=== PATIENT | male | born 1960 | race Caucasian/White ===

== ENCOUNTER 2016-10-19 13:00 | Inpatient (IN) | payer MEDICARE, MEDICAID ==
[2016-10-19] MEDS ORDERED: MORPHINE SULFATE 10 MG/ML SYRINGE IM STA (13:53)
--- NOTE | 2016-10-19 16:34 | ED ---
Psych HPI - General Chief Complaint: Psychiatric Symptoms Stated Complaint: mental health Time Seen by Provider: 10/19/16 13:38 Source: police, EMS Mode of arrival: EMS - History of Present Illness Initial Comments: Patient presents with suicidal ideation. He slashed his left wrist earlier today. He denies any weakness, belly pain, back pain, chest pain. He has no nausea or vomiting. Patient is withdrawing from morphine as well. He was taking morphine daily for chronic back pain. Patient denies any numbness or tingling. He has no focal weakness. - Related Data Home Medications Medication Instructions Recorded Confirmed Albuterol Inhaler [Ventolin Hfa 1 - 2 puff INHALATION RT-Q6H PRN 10/19/16 Inhaler] Escitalopram [Lexapro] 20 mg PO DAILY 10/19/16 10/19/16 Morphine Sulfate [Linette] 200 mg PO BID 10/19/16 10/19/16 Simvastatin [Zocor] 20 mg PO HS 10/19/16 10/19/16 Tamsulosin HCl [Flomax] 0.4 mg PO HS 10/19/16 10/19/16 clonazePAM [KlonoPIN] 1 mg PO BID 10/19/16 10/19/16 hydrOXYzine PAMOATE [Vistaril] 50 mg PO BID 10/19/16 10/19/16 Allergies Allergy/AdvReac Type Severity Reaction Status Date / Time venom-honey bee Allergy Anaphylaxis Verified 10/19/16 14:40 Review of Systems ROS Statement: Those systems with pertinent positive or pertinent negative responses have been documented in the HPI. ROS Other: All systems not noted in ROS Statement are negative. Past Medical History Additional Past Medical History / Comment(s): back pain History of Any Multi-Drug Resistant Organisms: None Reported Past Surgical History: No Surgical Hx Reported Past Psychological History: Anxiety, Bipolar, Depression Smoking Status: Current every day smoker Past Alcohol Use History: None Reported Past Drug Use History: None Reported General Exam Limitations: no limitations General appearance: alert, in no apparent distress Head exam: Present: atraumatic, normocephalic, normal inspection Eye exam: Present: normal appearance, PERRL, EOMI. Absent: scleral icterus, conjunctival injection, periorbital swelling ENT exam: Present: normal exam, mucous membranes moist Neck exam: Present: normal inspection. Absent: tenderness, meningismus, lymphadenopathy Respiratory exam: Present: normal lung sounds bilaterally. Absent: respiratory distress, wheezes, rales, rhonchi, stridor Cardiovascular Exam: Present: regular rate, normal rhythm, normal heart sounds. Absent: systolic murmur, diastolic murmur, rubs, gallop, clicks GI/Abdominal exam: Present: soft, normal bowel sounds. Absent: distended, tenderness, guarding, rebound, rigid Extremities exam: Present: normal inspection, full ROM, normal capillary refill. Absent: tenderness, pedal edema, joint swelling, calf tenderness Back exam: Present: normal inspection Neurological exam: Present: alert, oriented X3, CN II-XII intact Psychiatric exam: Present: normal affect, normal mood Skin exam: Present: warm, dry, normal color, other (Patient has/moss to the left wrist including 1 laceration extending 1.5 cm). Absent: rash Course Vital Signs 10/19/16 13:10 Temperature 97.6 F Pulse Rate 62 Respiratory 18 Rate Blood Pressure 122/78 O2 Sat by Pulse 100 Oximetry Procedures - Laceration Laceration #1 Consent Obtained: verbal consent Time Out Performed: Yes Indication: laceration Site: upper extremity Description: linear Depth: simple, single layer Anesthetic Used: lidocaine 1% Anesthesia Technique: local infiltration Pre-repair: wound explored, irrigated extensively Type of Sutures: nylon Size of Sutures: 4-0 Technique: simple, interrupted Patient Tolerated Procedure: well, no complications Medical Decision Making - Medical Decision Making Patient presents with suicidal ideation. I repaired his laceration. I consult at psychiatry. Patient will be admitted to psychiatry. I gave the patient anticipatory guidance regarding care of his wound and suture removal at an appropriate time. - Lab Data Lab Results 10/19/16 Range/Units 15:54 Urine Opiates Screen Detected H (NotDetected) Ur Oxycodone Screen Not Detected (NotDetected) Urine Methadone Screen Not Detected (NotDetected) Ur Propoxyphene Screen Not Detected (NotDetected) Ur Barbiturates Screen Not Detected (NotDetected) U Tricyclic Antidepress Not Detected (NotDetected) Ur Phencyclidine Scrn Not Detected (NotDetected) Ur Amphetamines Screen Not Detected (NotDetected) U Methamphetamines Scrn Not Detected (NotDetected) U Benzodiazepines Scrn Not Detected (NotDetected) Urine Cocaine Screen Not Detected (NotDetected) U Marijuana (THC) Screen Not Detected (NotDetected) Disposition Clinical Impression: Depression Disposition: ADMITTED IP TO THIS HOSP Condition: Fair Time of Disposition: 16:34
[2016-10-19] MEDS ORDERED: MAGNESIUM HYDROXIDE 2,400 MG/10 ML CUP PO PRN (17:42)
[2016-10-19] MEDS ORDERED: ACETAMINOPHEN TAB 325 MG TAB PO PRN (17:42)
[2016-10-19] MEDS ORDERED: MAG HYDROX/AL HYDROX/SIMETH 30 ML CUP PO PRN (17:42)
[2016-10-19] MEDS ORDERED: cloNIDine HCL 0.1 MG TAB PO PRN (17:43)
[2016-10-19] MEDS ORDERED: LORazepam 2 MG/ML SYRINGE IM PRN (17:44)
[2016-10-19] MEDS ORDERED: LOPERAMIDE 2 MG CAP PO PRN (17:45)
[2016-10-19] MEDS ORDERED: ONDANSETRON 4 MG TAB PO PRN (17:45)
[2016-10-19] MEDS ORDERED: ALBUTEROL INHALER 60 PUFF/8 GM INHALER INHALATION PRN (17:47)
[2016-10-19 18:50] VITALS: BMI 15.7
[2016-10-19] MEDS: hydrOXYzine PAMOATE 25 MG CAP PO SCH (20:40)
[2016-10-19] MEDS: IBUPROFEN 800 MG TAB PO PRN (20:45)
[2016-10-19] MEDS: LORazepam 1 MG TAB PO PRN (20:46)
[2016-10-19 20:47] VITALS: RESP 16
[2016-10-19] MEDS ORDERED: ATORVASTATIN 10 MG TAB PO SCH (21:00)
[2016-10-19] MEDS ORDERED: TAMSULOSIN 0.4 MG CAP.ER.24H PO SCH (21:00)
[2016-10-19] MEDS ORDERED: cloNIDine HCL 0.1 MG TAB PO SCH (21:00)
[2016-10-19] MEDS ORDERED: ZIPRASIDONE 20 MG VIAL IM PRN (23:14)
[2016-10-20] MEDS: LORazepam 1 MG TAB PO PRN ×2 (06:39→15:38)
[2016-10-20 07:04] VITALS: BP 121/68; PULSE 54; TEMP 98
[2016-10-20] MEDS ORDERED: ESCITALOPRAM 20 MG TAB PO SCH (09:00)
[2016-10-20] MEDS ORDERED: NICOTINE 7MG/24HR PATCH TRANSDERM SCH (09:00)
[2016-10-20] MEDS: hydrOXYzine PAMOATE 25 MG CAP PO SCH (09:18)
[2016-10-20] MEDS: IBUPROFEN 800 MG TAB PO PRN (09:21)
[2016-10-20 09:57] LABS: Basophils % (A) 0 %; CH 30.5; CHCM 32.8; Eosinophils # (A) 0.1 k/uL (0-0.7); Eosinophils % (A) 1 %; HCT 44.9 % (39.0-53.0); HDW 2.32; HGB 14.6 gm/dL (13.0-17.5); Luc # (Auto) 0.04; Luc % (Auto) 0; Lymphocytes % (A) 9 %; MCH 30.3 pg (25.0-35.0); MCHC 32.5 g/dL (31.0-37.0); MCV 93.3 fL (80.0-100.0); Mean Platelet Volume 7.4; Monocytes # (A) 0.3 k/uL (0-1.0); Monocytes % (A) 3 %; Neutrophils # (A) 9.4 k/uL (1.3-7.7); Neutrophils % (A) 87 %; RBC 4.81 m/uL (4.30-5.90); RDW 12.3 % (11.5-15.5); WBC 10.8 k/uL (3.8-10.6); WBC (Perox) 10.85
[2016-10-20 10:27] LABS: ALT 42 U/L (21-72); AST 34 U/L (17-59); Alkaline Phosphatase 69 U/L (38-126); Anion Gap 17 mmol/L; Blood Urea Nitrogen 24 mg/dL (9-20); Calcium 10.4 mg/dL (8.4-10.2); Carbon Dioxide 19 mmol/L (22-30); Chloride 106 mmol/L (98-107); Glucose 243 mg/dL (74-99); Non-African American GFR(MDRD) >60 (>60 ml/min/1.73 sqM); Potassium 4.4 mmol/L (3.5-5.1); Sodium 142 mmol/L (137-145); Total Bilirubin 1.1 mg/dL (0.2-1.3); Total Protein 8.2 g/dL (6.3-8.2)
--- NOTE | 2016-10-20 14:08 | P.HP ---
Psychiatric H&P - . H&P Date: 10/20/16 History & Physical: IDENTIFYING DATA: Mr. Lopez is a 56-year-old male who presented to the ED with suicidal ideation and a self-inflicted laceration to his left wrist. He was minimally cooperative with the interview and his history was inconsistent during interview and with information obtained by other staff. HISTORY OF PRESENT ILLNESS: Local authorities brought him to the ED and a global chief experience officer completed a Petition/Application for Hospitalization. On the Petition and the officer wrote "subject called crisis line stating he was depressed and cutting himself as he was on the following. Subject did have a superficial laceration to his left wrist. He was very pale, weak, dizzy. Wants to kill himself, severe back pain. Ranout of Klonopin, anxiety." He stated he became suicidal because he was unable to obtain another prescription for morphine sulfate 250 mg by mouth twice a day. He stated that a neurologist in [place], Saurav Brooks, had been prescribing this medication for the last 10 years for chronic back pain due to degenerative joint disease. He received a partial prescription on September 28. When he called the physician office to obtain a refill, the physician's office told him that the physician office has closed. They provided him with the names of other "pain specialist" in the [place] area. Mr. Lopez stated that he called the doctor's offices but none of the physicians would prescribe him the morphine sulfate without a medical evaluation. He attempted to self detox by decreasing the frequency of his dosing. He described increasing opiate withdrawal symptoms and complained of worsening back pain. When he cut his wrist he stated that he was frustrated that he would not be able to tolerate the opiate withdrawal symptoms. While he was in the emergency department he refused to sign a voluntary admission. He complained of opiate withdrawal symptoms and worsening pain. He denies that he has an opiate use problem and is not interested in a referral to a methadone treatment program. PAST PSYCHIATRIC HISTORY: He denied prior psychiatric hospitalizations. He alleged that he "may have" met with a mental health professional in the past but would not provide additional information. PAST MEDICAL HISTORY: He alleged that he injured his back several years ago when he was picking up one of his children. He stated that non-opiate treatments were ineffective and he has been prescribed opiate pain medications for many years. He initially received the medications from a [place] physician but transferred to Dr. Vivas when the [place] physicians lost his license to practice medicine. He believes that Dr. Vivas is no longer in practice because he also may have lost his license to practice medicine. According to the licensing information for the [facility] Dr. Modesto Vivas summarily lost his license to practice medicine on 10/04/16. ALLERGIES: He has a self-reported ALLERGY to codeine, hydrocodone, oxycodone and tramadol SUBSTANCE USE HISTORY: He denied a history of abuse of heroin, cocaine, methamphetamine or opioid pain medicines and alcohol. He denied smoking marijuana but boasted that he has a license to grow and self marijuana. FAMILY PSYCHIATRIC/SUBSTANCE USE HISTORY: He is unaware of family history of mental illness. LEGAL HISTORY: He denied current legal problems. He is not on probation, parole or has pending legal charges. 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 SOCIAL HISTORY: His born and raised in [place] to an intact family. He graduated from high school and alleged that he obtained an Associates degree in [employer] arts after he left [place] [facility]. His parents, 2 brothers and 3 sisters are . He had no contact with his brothers or sisters since he was 7 years old. He was 7 years. His is . He has 3 daughters ages 30, 26 and 22. The oldest is out of wedlock the youngest were from his marriage. He is currently unemployed and receives social security disability. He last worked in 2003. He lives alone in an apartment in [place] [facility]. MENTAL STATUS EXAM: He presented as a thin pale appearing male who was minimally cooperative with the interview he was irritable and guarded. He made eye contact. He had no distinguishing features or prominent physical abnormalities. He had an irritable facial expression. He is alert and oriented to person, place and time. He has slight psychomotor retardation but no abnormal involuntary movements. His speech was not spontaneous and he had no articulation difficulties. He was irritable and angry. He denied suicidal ideation or wishes. He denied homicidal ideations. He described feelings depression related to his inability to obtain prescriptions for morphine sulfate but he denied feelings of worthlessness, helplessness or hopelessness. He denied obsessions. He ruminated on his pain and need for opiate medications. He didn't express ideas reference or paranoid ideation. His thinking was concrete but his associations were coherent and goal directed. He denied did not express clang associations, perseveration, neologisms or blocking. He denied hallucinations and did not appear to be responding to internal stimuli. Global impression of intellect is average. He has no awareness or understanding of his inappropriate and excessive use of opiate pain medication. STRENGTHS: Stable housing, stable income, treatment seeking WEAKNESSES: Chronic opiate use. IMPRESSION: He is a 56-year-old male who presented to unit involuntarily with complaints of opiate withdrawal and pain. He has been prescribed extremely high doses of morphine sulfate for the treatment of noncancerous pain. The physician providing the medication has recently lost his license to practice in [place]. Mr. Lopez is unable to find another physician willing to prescribe him the morphine sulfate. He denies that he has some opiate use problem and is not interested in referral to a substance use treatment program. He does not meet judicial criteria for voluntary hospitalization and he is unwilling to sign a voluntary admission. PRINCIPLE DIAGNOSIS: Opiate withdrawal, opiate use disorder, history of chronic back pain. RECOMMENDATION: He declined our offer for voluntary admission. He was preoccupied with obtaining narcotic pain medications and attempted several times to negotiate different medications. I explained that we will not prescribe him opiate medications without an evaluation and recommendation by our executive consultant sql server dba developer. We completed a negative certificate and discharged him to follow-up with one of the physicians recommended by his former pain specialist. Allergies Allergy/AdvReac Type Severity Reaction Status Date / Time venom-honey bee Allergy Anaphylaxis Verified 10/19/16 14:40 codeine AdvReac Anaphylaxis Verified 10/19/16 18:51 hydrocodone [From Rumely] AdvReac Anaphylaxis Verified 10/19/16 20:16 oxycodone [From Percocet] AdvReac Anaphylaxis Verified 10/19/16 20:16 tramadol AdvReac Anaphylaxis Verified 10/19/16 20:16 Vital Signs Temp 98.0 F 10/20/16 07:03 Pulse 54 L 10/20/16 07:03 Resp 16 10/20/16 07:03 BP 121/68 10/20/16 07:03 Pulse Ox 100 10/19/16 13:10 Intake & Output 10/19/16 10/20/16 10/20/16 18:59 06:59 18:59 Weight 49.898 kg Laboratory Last Values Urine Opiates Screen Detected (NotDetected) H 10/19/16 15:54 Ur Oxycodone Screen Not Detected (NotDetected) 10/19/16 15:54 Urine Methadone Screen Not Detected (NotDetected) 10/19/16 15:54 Ur Propoxyphene Screen Not Detected (NotDetected) 10/19/16 15:54 Ur Barbiturates Screen Not Detected (NotDetected) 10/19/16 15:54 U Tricyclic Antidepress Not Detected (NotDetected) 10/19/16 15:54 Ur Phencyclidine Scrn Not Detected (NotDetected) 10/19/16 15:54 Ur Amphetamines Screen Not Detected (NotDetected) 10/19/16 15:54 U Methamphetamines Scrn Not Detected (NotDetected) 10/19/16 15:54 U Benzodiazepines Scrn Not Detected (NotDetected) 10/19/16 15:54 Urine Cocaine Screen Not Detected (NotDetected) 10/19/16 15:54 U Marijuana (THC) Screen Not Detected (NotDetected) 10/19/16 15:54 10/20/16 08:48 10/20/16 13:41
--- NOTE | 2016-10-20 14:18 | P.DS ---
Providers Date of admission: 10/19/16 17:41 Attending physician: Patrick Parra MD Consults: 10/19/16 17:42 Consult Physician Routine Consulting Provider: Patrick Nguyen Consult Reason/Comments: Medical Management-Recommendation for pain/opiate withdrawal Do you want consulting provider notified?: Yes Primary care physician: Modesto Vivas - Discharge Diagnosis(es) (1) Opioid withdrawal Current Visit: Yes Status: Acute Priority: High (2) Opioid use disorder, severe, dependence Current Visit: Yes Status: Chronic Priority: High (3) Deliberate self-cutting Current Visit: Yes Status: Acute Priority: Medium Hospital Course: Mr. Lopez is a 56-year-old male who presented to the ED with suicidal ideation and a self-inflicted laceration to his left wrist. He was minimally cooperative with the interview and his history was inconsistent during interview and with information obtained by other staff. HISTORY OF PRESENT ILLNESS: Local authorities brought him to the ED and a marketing and communications officer completed a Petition/Application for Hospitalization. On the Petition and the officer wrote "subject called crisis line stating he was depressed and cutting himself as he was on the following. Subject did have a superficial laceration to his left wrist. He was very pale, weak, dizzy. Wants to kill himself, severe back pain. Ranout of Klonopin, anxiety." He stated he became suicidal because he was unable to obtain another prescription for morphine sulfate 250 mg by mouth twice a day. He stated that a neurologist in [place], Saurav Brooks, had been prescribing this medication for the last 10 years for chronic back pain due to degenerative joint disease. He received a partial prescription on September 28. When he called the physician office to obtain a refill, the physician's office told him that the physician office has closed. They provided him with the names of other "pain specialist" in the [place] area. Mr. Lopez stated that he called the doctor's offices but none of the physicians would prescribe him the morphine sulfate without a medical evaluation. He attempted to self detox by decreasing the frequency of his dosing. He described increasing opiate withdrawal symptoms and complained of worsening back pain. When he cut his wrist he stated that he was frustrated that he would not be able to tolerate the opiate withdrawal symptoms. While he was in the emergency department he refused to sign a voluntary admission. He complained of opiate withdrawal symptoms and worsening pain. He denies that he has an opiate use problem and is not interested in a referral to a methadone treatment program. PAST PSYCHIATRIC HISTORY: He denied prior psychiatric hospitalizations. He alleged that he "may have" met with a mental health professional in the past but would not provide additional information. PAST MEDICAL HISTORY: He alleged that he injured his back several years ago when he was picking up one of his children. He stated that non-opiate treatments were ineffective and he has been prescribed opiate pain medications for many years. He initially received the medications from a [place] physician but transferred to Dr. Vivas when the [place] physicians lost his license to practice medicine. He believes that Dr. Vivas is no longer in practice because he also may have lost his license to practice medicine. According to the licensing information for the [facility] Dr. Modesto Vivas summarily lost his license to practice medicine on 10/04/16. HOSPITAL COURSE: We admitted Mr. Lopez to the psychiatric unit involuntarily. We completed a comprehensive psychiatric, social and nursing assessment. Ourr impression that he was experiencing opiate withdrawal and had been inappropriately prescribed excessively high doses of narcotic pain medications. The physician who had been prescribing the medication has lost his license to practice in a [facility]. Mr. Lopez is distressed because he is unable to find a physician who is willing to prescribe the opiate pain medication. We treated his opiate withdrawal symptoms symptomatically with clonidine, lorazepam, Zofran and Lomotil. He complained about his inability to find physician willing to prescribe him the opiate pain medications. He does not believe he has a substance use problem declined a referral to a substance abuse treatment program. He denied suicidal ideation, intent or plan. He did not meet judicial criteria for involuntary hospitalization and refused our offer for a voluntary hospitalization for continued detoxification. We therefore discharged him with referral to [facility] and contact the physicians recommended by his former pain specialist. Patient Condition at Discharge: Fair Plan - Discharge Summary New Discharge Prescriptions: Albuterol Inhaler [Ventolin Hfa Inhaler] 1 - 2 puff INHALATION RT-Q6H PRN 30 Days PRN Reason: Shortness Of Breath Escitalopram [Lexapro] 20 mg PO DAILY 30 Days Ibuprofen [Motrin] 800 mg PO BID 30 Days Loperamide [Imodium] 2 mg PO QID PRN 30 Days PRN Reason: Diarrhea Nicotine 7Mg/24Hr Patch [Habitrol] 1 patch TRANSDERM DAILY 14 Days Ondansetron [Zofran] 4 mg PO Q8HR PRN 7 Days PRN Reason: Nausea And Vomiting Simvastatin [Zocor] 20 mg PO HS 30 Days Tamsulosin HCl [Flomax] 0.4 mg PO HS 30 Days hydrOXYzine PAMOATE [Vistaril] 50 mg PO BID 30 Days Discharge Medication List Albuterol Inhaler [Ventolin Hfa Inhaler] 1 - 2 puff INHALATION RT-Q6H PRN 30 Days 10/20/16 [Rx] Escitalopram [Lexapro] 20 mg PO DAILY 30 Days 10/20/16 [Rx] Ibuprofen [Motrin] 800 mg PO BID 30 Days 10/20/16 [Rx] Loperamide [Imodium] 2 mg PO QID PRN 30 Days 10/20/16 [Rx] Nicotine 7Mg/24Hr Patch [Habitrol] 1 patch TRANSDERM DAILY 14 Days 10/20/16 [Rx] Ondansetron [Zofran] 4 mg PO Q8HR PRN 7 Days 10/20/16 [Rx] Simvastatin [Zocor] 20 mg PO HS 30 Days 10/20/16 [Rx] Tamsulosin HCl [Flomax] 0.4 mg PO HS 30 Days 10/20/16 [Rx] hydrOXYzine PAMOATE [Vistaril] 50 mg PO BID 30 Days 10/20/16 [Rx] Follow up Appointment(s)/Referral(s): [facility] [Outside] - 10/23/16 7:00 pm (Dr Hand) Modesto Vivas DO [Primary Care Provider] - 1-2 days
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
== END 2016-10-20 16:36 | disposition home or self-care (01) | DRG 897 ==
LOC: EC 13:00 → 3MHU 17:41
PROVIDERS: ADMIT Psychiatry & Neurology Psychiatry; ATTEND Psychiatry & Neurology Psychiatry
DX: F11.23 Opioid dependence with withdrawal (principal); R45.851 Suicidal ideations; G89.29 Other chronic pain; M54.9 Dorsalgia, unspecified; S61.512A Laceration without foreign body of left wrist, initial encounter; X78.9XXA Intentional self-harm by unspecified sharp object, initial encounter; F17.200 Nicotine dependence, unspecified, uncomplicated; F32.9 Major depressive disorder, single episode, unspecified; F41.9 Anxiety disorder, unspecified; M47.9 Spondylosis, unspecified; Z79.899 Other long term (current) drug therapy
CPT/HCPCS: 12001; 80053; 80306; 82075; 84443; 85025; 94640; 96372; 99285

== ENCOUNTER → 2018-08-13 | Outpatient (CLI) | payer MEDICARE ==
[2018-08-13 11:02] LABS: Basophils # (A) 0.1 k/uL (0-0.2); Basophils % (A) 1 %; Eosinophils # (A) 0.2 k/uL (0-0.7); Eosinophils % (A) 4 %; HGB 13.2 gm/dL (13.0-17.5); Lymphocytes # (A) 1.8 k/uL (1.0-4.8); Lymphocytes % (A) 36 %; MCH 30.6 pg (25.0-35.0); MCHC 33.8 g/dL (31.0-37.0); MCV 90.8 fL (80.0-100.0); Mean Platelet Volume 8.1; Monocytes # (A) 0.4 k/uL (0-1.0); Monocytes % (A) 7 %; Neutrophils # (A) 2.6 k/uL (1.3-7.7); Neutrophils % (A) 50 %; Platelet Count 183 k/uL (150-450); RDW 13.2 % (11.5-15.5); WBC 5.1 k/uL (3.8-10.6)
[2018-08-13 15:58] LABS: Albumin 4.3 g/dL (3.80-4.90); Albumin/Globulin Ratio 2.53 (1.20-2.10); Anion Gap 6.1 mmol/L (4.00-12.00); Calcium 9.1 mg/dL (8.7-10.3); Carbon Dioxide 24.9 mmol/L (21.6-31.8); Globulin 1.7 g/dL (2.1-3.7); LDL Cholesterol,Calculated 107.2 mg/dL (0.0-131.0); Potassium 4.1 mmol/L (3.5-5.5); Total Bilirubin 0.4 mg/dL (0.2-1.2); VLDL Calculation 22.8 mg/dL (5.00-40.00)
[2018-08-13 16:06] LABS: T4, Free (Free Thyroxine) 1.1 ng/dL (0.80-1.80)
[2018-08-13 17:18] LABS: HIV 1 AB Non-Reactive (Non-Reactive); HIV AB P24 Non-Reactive (Non-Reactive); HIV P24 AG Non-Reactive (Non-Reactive)
[2018-08-14 13:57] LABS: Hepatits C Virus RNA Not detected (Not detected); Hepatits C Virus RNA, Quant <12 IU/mL (<12); LOG HCV IU/mL <1.08 (<1.08)
== END ==
LOC: LABWHC1 10:05
PROVIDERS: ATTEND Family Medicine
DX: E78.5 Hyperlipidemia, unspecified (principal); B18.2 Chronic viral hepatitis C; Z20.9 Contact with and (suspected) exposure to unspecified communicable disease; Z12.5 Encounter for screening for malignant neoplasm of prostate
CPT/HCPCS: 36415; 80053; 80061; 82105; 84153; 84439; 84443; 85025; 87390; 87522

== ENCOUNTER 2019-11-19 11:29 | Inpatient (IN) | payer MEDICARE, OTHER ==
[2019-11-19] MEDS ORDERED: NICOTINE 21MG/24HR PATCH TRANSDERM SCH (13:00)
[2019-11-19] MEDS ORDERED: HYDROcodone/APAP 7.5-325MG 1 EACH TAB PO PRN (13:03)
[2019-11-19] MEDS ORDERED: ACETAMINOPHEN TAB 500 MG TAB PO PRN (13:04)
[2019-11-19] MEDS: MORPHINE SULFATE 2 MG/ML SYRINGE IVP PRN ×3 (13:40→23:14)
[2019-11-19 13:54] LABS: Basophils # (A) 0.1 k/uL (0-0.2); Basophils % (A) 1 %; Eosinophils % (A) 1 %; HCT 42.5 % (39.0-53.0); HGB 14.2 gm/dL (13.0-17.5); Lymphocytes # (A) 1.5 k/uL (1.0-4.8); Lymphocytes % (A) 18 %; MCH 31.9 pg (25.0-35.0); MCHC 33.5 g/dL (31.0-37.0); MCV 95.3 fL (80.0-100.0); Monocytes # (A) 0.5 k/uL (0-1.0); Monocytes % (A) 6 %; Neutrophils # (A) 5.9 k/uL (1.3-7.7); Neutrophils % (A) 73 %; Platelet Count 204 k/uL (150-450); RBC 4.46 m/uL (4.30-5.90); RDW 13.3 % (11.5-15.5); WBC 8.1 k/uL (3.8-10.6)
[2019-11-19 14:05] LABS: ALT 18 U/L (4-49); AST 25 U/L (17-59); African American GFR (CKD) >90 (>60 ml/min/1.73 sqM); Albumin 4.5 g/dL (3.5-5.0); Alkaline Phosphatase 59 U/L (38-126); Anion Gap 6 mmol/L; Blood Urea Nitrogen 12 mg/dL (9-20); Calcium 9.8 mg/dL (8.4-10.2); Carbon Dioxide 28 mmol/L (22-30); Chloride 103 mmol/L (98-107); Glucose 98 mg/dL (74-99); Non-African American GFR(CKD) 87 (>60 ml/min/1.73 sqM); Potassium 4.1 mmol/L (3.5-5.1); Sodium 137 mmol/L (137-145); Total Bilirubin 0.7 mg/dL (0.2-1.3); Total Protein 7.2 g/dL (6.3-8.2)
[2019-11-19] MEDS ORDERED: PNEUMOCOCCAL VACC-PNEUMOVAX 23 25 MCG/0.5 ML VIAL IM ONE (14:49)
--- NOTE | 2019-11-19 15:11 | CT ---
EXAMINATION TYPE: CT lumbar spine wo con DATE OF EXAM: 11/19/2019 2:57 PM COMPARISON: None. HISTORY: Chronic back pain. CT DLP: 368.7 mGycm Automated exposure control for dose reduction was used. Unenhanced CT of the lumbar spine was performed. Bone and soft tissue window settings are submitted as well as coronal and sagittal reconstructions. There are 5 lumbar-type vertebra. Lumbar spine shows satisfactory alignment without evidence of acute fracture or dislocation. Vertebral body heights and disc space heights are felt within normal limits . No large posterior disc herniations on sagittal images. Axial images show T12-L1, L1-L2, and L2-L3 levels all felt to be within normal limits. Axial images at L3-L4 levels with mild broad disc bulge minimally effacing the anterior thecal sac, b ilateral neural foramina are patent. Axial images at L4-L5 level and [id number] facet degenerative changes bilaterally with mild bro ad-based posterior disc protrusion mildly effacing the anterior thecal sac and causing mild/moderate bilateral neural foraminal narrowing. Axial images at L5-S1 level shows central disc protrusion with spinal canal is preserved. Bilateral n eural foramina are patent. Mild/moderate calcified plaque of the aorta extends into the iliac branch vessels. Patient has very l ittle intra-abdominal fat. Debris-filled stomach suggests recent meal ingestion. IMPRESSION: Mild degenerative changes mid to lower lumbar spine as detailed above.
[2019-11-19] MEDS: SENNOSIDES-DOCUSATE SODIUM 1 EACH TAB PO SCH ×2 (15:22→20:25)
[2019-11-19] MEDS: SODIUM CHLORIDE 0.9% 1,000 ML IV SCH (15:23)
[2019-11-19] MEDS: PANTOPRAZOLE 40 MG/10 ML VIAL IVP SCH (15:23)
[2019-11-19] MEDS: NICOTINE 7MG/24HR PATCH TRANSDERM SCH (15:23)
[2019-11-19] MEDS ORDERED: INSULIN ASPART (NovoLOG) 100 UNIT/ML VIAL SQ SCH (17:30)
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
[2019-11-19] MEDS: clonazePAM 0.5 MG TAB PO SCH (20:25)
[2019-11-19] MEDS: GABAPENTIN 100 MG CAP PO SCH ×2 (20:25→23:14)
[2019-11-19] MEDS: TAMSULOSIN 0.4 MG CAP.ER.24H PO SCH (20:25)
[2019-11-20 00:40] LABS: Folate, Serum 16.2 ng/mL
[2019-11-20] MEDS: SODIUM CHLORIDE 0.9% 1,000 ML IV SCH ×2 (02:06→15:52)
[2019-11-20 02:31] LABS: Hemoglobin A1C 5.6 % (4.0-6.0)
[2019-11-20] MEDS: MORPHINE SULFATE 2 MG/ML SYRINGE IVP PRN (03:52)
[2019-11-20] MEDS: NICOTINE 7MG/24HR PATCH TRANSDERM SCH (07:49)
[2019-11-20] MEDS: GABAPENTIN 100 MG CAP PO SCH (07:49)
[2019-11-20] MEDS: SENNOSIDES-DOCUSATE SODIUM 1 EACH TAB PO SCH ×2 (07:49→20:06)
[2019-11-20] MEDS: PANTOPRAZOLE 40 MG/10 ML VIAL IVP SCH (07:50)
[2019-11-20] MEDS: clonazePAM 0.5 MG TAB PO SCH ×2 (07:50→20:06)
[2019-11-20] MEDS: MORPHINE SULFATE 4 MG/ML SYRINGE IVP PRN ×4 (07:50→20:06)
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
[2019-11-20] MEDS: methylPREDNISolone SOD SUCCI 40 MG/ML 1 ML VIAL IV SCH ×2 (09:24→15:53)
[2019-11-20 09:34] LABS: Basophils # (A) 0.1 k/uL (0-0.2); Basophils % (A) 1 %; Eosinophils # (A) 0.1 k/uL (0-0.7); Eosinophils % (A) 1 %; HCT 44.5 % (39.0-53.0); HGB 14.2 gm/dL (13.0-17.5); Lymphocytes # (A) 1.4 k/uL (1.0-4.8); Lymphocytes % (A) 17 %; MCH 31.2 pg (25.0-35.0); MCV 97.3 fL (80.0-100.0); Monocytes # (A) 0.4 k/uL (0-1.0); Monocytes % (A) 5 %; Neutrophils # (A) 6.2 k/uL (1.3-7.7); Neutrophils % (A) 74 %; Platelet Count 209 k/uL (150-450); RBC 4.57 m/uL (4.30-5.90); RDW 13.4 % (11.5-15.5); WBC 8.3 k/uL (3.8-10.6)
[2019-11-20 09:53] LABS: African American GFR (CKD) >90 (>60 ml/min/1.73 sqM); Anion Gap 9 mmol/L; Blood Urea Nitrogen 18 mg/dL (9-20); Calcium 9.8 mg/dL (8.4-10.2); Carbon Dioxide 24 mmol/L (22-30); Chloride 104 mmol/L (98-107); Glucose 162 mg/dL (74-99); Non-African American GFR(CKD) 85 (>60 ml/min/1.73 sqM); Potassium 5.1 mmol/L (3.5-5.1); Sodium 137 mmol/L (137-145)
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
[2019-11-20] MEDS: GABAPENTIN 300 MG CAP PO SCH ×2 (15:54→20:06)
[2019-11-20] MEDS: TAMSULOSIN 0.4 MG CAP.ER.24H PO SCH (20:06)
[2019-11-21] MEDS: MORPHINE SULFATE 4 MG/ML SYRINGE IVP PRN ×4 (00:54→13:49)
[2019-11-21] MEDS: methylPREDNISolone SOD SUCCI 40 MG/ML 1 ML VIAL IV SCH ×3 (00:54→14:57)
[2019-11-21] MEDS: SODIUM CHLORIDE 0.9% 1,000 ML IV SCH ×2 (05:21→09:29)
[2019-11-21] MEDS ORDERED: PANTOPRAZOLE 40 MG TABLET PO SCH (07:30)
[2019-11-21] MEDS: SENNOSIDES-DOCUSATE SODIUM 1 EACH TAB PO SCH (08:08)
[2019-11-21] MEDS: GABAPENTIN 300 MG CAP PO SCH ×2 (08:08→15:02)
[2019-11-21] MEDS: clonazePAM 0.5 MG TAB PO SCH (08:08)
[2019-11-21] MEDS: NICOTINE 7MG/24HR PATCH TRANSDERM SCH (08:09)
[2019-11-21 11:25] VITALS: BMI 19.0
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
[2019-11-21 13:26] VITALS: BP 130/85; PULSE 73; RESP 18; TEMP 98.2
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
== END 2019-11-21 15:11 | disposition home or self-care (01) | DRG 552 ==
LOC: 6NMEDSUR 11:39
PROVIDERS: ADMIT Family Medicine; ATTEND Family Medicine
DX: M51.26 Other intervertebral disc displacement, lumbar region (principal); F11.20 Opioid dependence, uncomplicated; G89.4 Chronic pain syndrome; F41.9 Anxiety disorder, unspecified; F31.9 Bipolar disorder, unspecified; F17.200 Nicotine dependence, unspecified, uncomplicated; J44.9 Chronic obstructive pulmonary disease, unspecified; Z88.5 Allergy status to narcotic agent; Z88.8 Allergy status to other drugs, medicaments and biological substances; Z91.030 Bee allergy status
CPT/HCPCS: 36410; 72131; 76937; 80048; 80053; 82607; 82746; 83036; 85025; 85652; 86334; 90732

== ENCOUNTER 2020-07-15 12:31 | Emergency (ER) | payer MEDICARE, OTHER ==
[2020-07-15 12:41] VITALS: TEMP 97.5
[2020-07-15 13:21] VITALS: RESP 18
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
[2020-07-15 13:31] LABS: Basophils # (A) 0.1 k/uL (0-0.2); Basophils % (A) 1 %; Eosinophils # (A) 0.3 k/uL (0-0.7); Eosinophils % (A) 4 %; HCT 41.7 % (39.0-53.0); HGB 13.7 gm/dL (13.0-17.5); Lymphocytes # (A) 1.5 k/uL (1.0-4.8); Lymphocytes % (A) 23 %; MCH 31.7 pg (25.0-35.0); MCHC 32.9 g/dL (31.0-37.0); MCV 96.3 fL (80.0-100.0); Mean Platelet Volume 7.6; Monocytes # (A) 0.4 k/uL (0-1.0); Monocytes % (A) 6 %; Neutrophils # (A) 4.1 k/uL (1.3-7.7); Neutrophils % (A) 64 %; Platelet Count 206 k/uL (150-450); RBC 4.33 m/uL (4.30-5.90); RDW 12.7 % (11.5-15.5); WBC 6.4 k/uL (3.8-10.6)
[2020-07-15 13:44] LABS: ALT 17 U/L (4-49); AST 29 U/L (17-59); African American GFR (CKD) 72 (>60 ml/min/1.73 sqM); Albumin 4.3 g/dL (3.5-5.0); Alcohol <10 mg/dL; Alkaline Phosphatase 63 U/L (38-126); Anion Gap 4 mmol/L; Blood Urea Nitrogen 23 mg/dL (9-20); Calcium 9.5 mg/dL (8.4-10.2); Carbon Dioxide 32 mmol/L (22-30); Chloride 101 mmol/L (98-107); Creatine Kinase 118 U/L (55-170); Glucose 91 mg/dL (74-99); Lipase 68 U/L (23-300); Magnesium 1.8 mg/dL (1.6-2.3); Non-African American GFR(CKD) 62 (>60 ml/min/1.73 sqM); Potassium 4.5 mmol/L (3.5-5.1); Sodium 137 mmol/L (137-145); Total Bilirubin 0.4 mg/dL (0.2-1.3); Total Protein 7.1 g/dL (6.3-8.2)
--- NOTE | 2020-07-15 13:54 | CT ---
EXAMINATION TYPE: CT brain wo con DATE OF EXAM: 07/15/2020 HISTORY: altered mental status CT DLP: 1064.4 mGycm. Automated Exposure Control for Dose Reduction was Utilized. TECHNIQUE: CT scan of the head is performed without contrast. COMPARISON: None. FINDINGS: There is no acute intracranial hemorrhage or midline shift identified. There is diffuse v entricular and sulcal prominence consistent with diffuse age-related cerebral atrophy greatest over t he bilateral frontal lobes. Jones-white matter differentiation fairly well maintained. Vascular calci fication distal internal carotid arteries bilaterally. The globes are intact and the visualized sinus es are clear. IMPRESSION: No acute intracranial hemorrhage or midline shift. There is mild to moderate diffuse ce rebral atrophy noted.
[2020-07-15 14:01] LABS: Lactic Acid, Venous 0.6 mmol/L (0.7-2.0)
[2020-07-15 14:32] VITALS: BP 96/73; PULSE 66
== END 2020-07-15 14:59 | disposition home or self-care (01) ==
LOC: EC 12:31
DX: E86.0 Dehydration (principal); I95.1 Orthostatic hypotension; F41.9 Anxiety disorder, unspecified; F31.9 Bipolar disorder, unspecified; F17.200 Nicotine dependence, unspecified, uncomplicated; J45.909 Unspecified asthma, uncomplicated; Z79.899 Other long term (current) drug therapy; Z88.5 Allergy status to narcotic agent; Z88.6 Allergy status to analgesic agent; Z91.030 Bee allergy status
CPT/HCPCS: 36415; 93005; 85379; 80053; 82140; 82550; 83605; 83690; 83735; 84484; 85025; 70450; 99285; G0480; 80320

== ENCOUNTER 2021-02-16 22:55 | Emergency (ER) | payer MEDICARE, OTHER ==
[2021-02-16 23:02] LABS: Glucose,Whole Blood 123 mg/dL (75-99)
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
[2021-02-16] MEDS ORDERED: SODIUM CHLORIDE 0.9% 1,000 ML IV STA (23:09)
[2021-02-16] MEDS ORDERED: SODIUM CHLORIDE 0.9% 2,000 ML IV STA (23:09)
[2021-02-16] MEDS ORDERED: NALOXONE 0.4 MG/ML 1 ML VIAL IV STA (23:09)
[2021-02-16] MEDS ORDERED: SODIUM BICARB 8.4% 50 ML SYR (1 MEQ/ML) IV STA (23:13)
[2021-02-16] MEDS ORDERED: DEXTROSE 50% SYRINGE 50 ML IVP STA (23:13)
[2021-02-16] MEDS ORDERED: INSULIN REGULAR 100 UNIT/ML VIAL IV ONE (23:13)
[2021-02-16] MEDS ORDERED: CALCIUM GLUCONATE 2 GM in SODIUM CHLORIDE 0.9% 100 ML IVPB ONE (23:13)
[2021-02-16] MEDS ORDERED: methylPREDNISolone SOD SUCCI 125 MG/2 ML VIAL IV STA (23:15)
[2021-02-17 00:28] LABS: Albumin 4.2 g/dL (3.5-5.0); Alkaline Phosphatase 113 U/L (38-126); Blood Urea Nitrogen 42 mg/dL (9-20); Chloride 101 mmol/L (98-107); Glucose 140 mg/dL (74-99); Total Bilirubin 0.5 mg/dL (0.2-1.3); Total Protein 6.8 g/dL (6.3-8.2)
[2021-02-17 00:30] LABS: Acetaminophen <10.0 ug/mL; Alcohol <10 mg/dL; Anion Gap 27 mmol/L; Calcium 7.1 mg/dL (8.4-10.2); Lipase 401 U/L (23-300); Magnesium 3.4 mg/dL (1.6-2.3); Salicylate <1.0 mg/dL; Sodium 133 mmol/L (137-145)
[2021-02-17 00:35] LABS: VBG PH 7.05 (7.31-7.41)
[2021-02-17 00:48] LABS: Basophils # (A) 0.1 k/uL (0-0.2); Basophils % (A) 0 %; Eosinophils # (A) 0.1 k/uL (0-0.7); Eosinophils % (A) 1 %; HCT 47.3 % (39.0-53.0); HGB 14.6 gm/dL (13.0-17.5); Hypochromasia Moderate; Lymphocytes # (A) 0.5 k/uL (1.0-4.8); Lymphocytes % (A) 3 %; MCH 30.6 pg (25.0-35.0); MCHC 30.9 g/dL (31.0-37.0); MCV 99.1 fL (80.0-100.0); Mean Platelet Volume 8.6; Monocytes # (A) 1.3 k/uL (0-1.0); Monocytes % (A) 7 %; Neutrophils # (A) 15.5 k/uL (1.3-7.7); Neutrophils % (A) 89 %; Platelet Count 247 k/uL (150-450); RBC 4.77 m/uL (4.30-5.90); RDW 13.6 % (11.5-15.5); WBC 17.5 k/uL (3.8-10.6)
[2021-02-17 00:52] LABS: INR 0.9 (<1.2); Partial Thromboplastin Time 24.3 sec (22.0-30.0); Prothrombin Time 9.8 sec (9.0-12.0)
[2021-02-17] MEDS ORDERED: SODIUM BICARB 8.4% 50 ML SYR (1 MEQ/ML) IV STA ×9 (00:52→05:30)
[2021-02-17 00:55] LABS: Appearance,Urine Clear (Clear); Bilirubin,Urine Negative (Negative); Blood,Urine Negative (Negative); Color,Urine Yellow; Glucose,Urine (UA) Negative (Negative); Ketones,Urine Negative (Negative); Leukocyte Esterase,Urine Negative (Negative); Nitrite,Urine Negative (Negative); PH, Urine 6.5 (5.0-8.0); Protein,Urine Trace (Negative); Specific Gravity,Urine 1.015 (1.001-1.035); Urobilinogen,Urine <2.0 mg/dL (<2.0)
[2021-02-17 01:01] LABS: Troponin I 0.412 ng/mL (0.000-0.034)
[2021-02-17] MEDS ORDERED: INSULIN REGULAR 100 UNIT/ML VIAL IV ONE ×3 (01:01→05:30)
[2021-02-17] MEDS ORDERED: DEXTROSE 50% SYRINGE 50 ML IVP STA ×4 (01:01→05:30)
[2021-02-17] MEDS ORDERED: CALCIUM CHLORIDE 100 MG/ML 10 ML SYRINGE IVP ONE (01:01)
[2021-02-17] MEDS ORDERED: CALCIUM CHLORIDE 100 MG/ML 10 ML SYRINGE IVP STA ×5 (01:01→05:30)
[2021-02-17 01:02] LABS: Creatine Kinase MB >800.0 ng/mL (0.0-2.4)
[2021-02-17 01:04] LABS: Carbon Dioxide 5 mmol/L (22-30)
[2021-02-17 01:05] LABS: Amphetamine Screen,Urine Not Detected (NotDetected); Barbiturate Screen,Urine Not Detected (NotDetected); Benzodiazepines Screen,Urine Detected (NotDetected); Cocaine Screen,Urine Not Detected (NotDetected); Methadone Screen, Urine Not Detected (NotDetected); Opiate Screen,Urine Not Detected (NotDetected); Oxycodone Screen, Urine Not Detected (NotDetected); Phencyclidine Screen,Urine Not Detected (NotDetected); Tricyclic Antidepressant,Urine Not Detected (NotDetected); Urn Cannabinoid Scrn Detected (NotDetected)
[2021-02-17 01:05] LABS: ALT 932 U/L (4-49); Phosphorus 23.7 mg/dL (2.5-4.5)
[2021-02-17 01:06] LABS: Lactic Acid, Venous 10.5 mmol/L (0.7-2.0)
[2021-02-17] MEDS ORDERED: ALBUTEROL NEBULIZED 2.5 MG/3 ML INHALATION STA ×2 (01:12→04:22)
[2021-02-17 01:22] LABS: AST 5107 U/L (17-59); African American GFR (CKD) 17 (>60 ml/min/1.73 sqM); Non-African American GFR(CKD) 15 (>60 ml/min/1.73 sqM)
[2021-02-17 02:08] LABS: Potassium 9.5 mmol/L (3.5-5.1)
[2021-02-17 02:10] LABS: Creatine Kinase >160000 U/L (55-170)
[2021-02-17] MEDS ORDERED: SODIUM CHLORIDE 0.9% 2,000 ML IV STA (02:47)
--- NOTE | 2021-02-17 04:38 | CT ---
EXAMINATION TYPE: CT brain cspine wo con DATE OF EXAM: 02/17/2021 COMPARISON: CT brain 07/15/2020 HISTORY: fall/ams Pain CT DLP: 671.46 mGycm Automated exposure control for dose reduction was used. There is mild cerebral atrophy. There is no mass effect nor midline shift. There is no sign of intrac ranial hemorrhage. The calvarium is intact. The skull base is intact. There is normal aeration of the mastoid sinuses. Cervical vertebra have normal alignment. Posterior elements are intact. Facet joints are intact. Ther e is some motion artifact at C5 level. IMPRESSION: Negative CT scan of the cervical spine. No fracture. Mild cerebral atrophy. No acute intracranial abnormality. No change.
--- NOTE | 2021-02-17 04:44 | CT ---
EXAMINATION TYPE: CT facial bones wo con DATE OF EXAM: 02/17/2021 COMPARISON: None HISTORY: fall/ams CT DLP: 335.73 mGycm Automated exposure control for dose reduction was used. Images obtained from the bottom of the mandible to the top of the frontal sinuses without contrast. There is fracture of the left zygomatic arch with 3 mm displacement. The margins are somewhat rounded . There is some depression of the right zygomatic arch that could be an old healed fracture. The nasa l bone is intact. The orbital margins appear intact. I see no evidence of a blowout fracture. There i s no retro-orbital mass. There is some mild mucosal thickening in the lateral right maxillary sinus. There is atrophy of the n hema turbinates. The mandibular ring appears intact. The temporomandibular joints are intact. There i s normal aeration of the mastoid sinuses. The external auditory canals are intact. IMPRESSION: Bilateral zygomatic arch fractures which are probably old. There is some posterior displacement of th e anterior wall right maxillary sinus also consistent with an old fracture. No acute fracture seen.
--- NOTE | 2021-02-17 04:45 | XR ---
EXAMINATION TYPE: XR chest 1V portable DATE OF EXAM: 02/17/2021 COMPARISON: NONE HISTORY: Fall. Pain. TECHNIQUE: FINDINGS: Heart is normal. There is some coarsening of interstitial markings of both lungs. There are chest leads. There is no evidence of a pulmonary mass. IMPRESSION: There is evidence of some COPD and pulmonary fibrosis. No acute lung disease.
[2021-02-17 05:32] LABS: T4, Free (Free Thyroxine) 1.35 ng/dL (0.78-2.19)
[2021-02-17 05:46] VITALS: PULSE 80; RESP 26
[2021-02-17 05:47] LABS: Potassium 6.5 mmol/L (3.5-5.1)
[2021-02-17] MEDS ORDERED: cefTRIAXone 1,000 MG VIAL (IM USE) IM STA (05:47)
[2021-02-17 06:25] VITALS: BP 126/89; TEMP 97.9
== END 2021-02-17 07:07 | disposition other institution (70) ==
LOC: EC 22:55
DX: N17.9 Acute kidney failure, unspecified (principal); E87.5 Hyperkalemia; E03.5 Myxedema coma; M62.82 Rhabdomyolysis; T68.XXXA Hypothermia, initial encounter; J45.909 Unspecified asthma, uncomplicated; T50.901A Poisoning by unspecified drugs, medicaments and biological substances, accidental (unintentional), initial encounter; F11.23 Opioid dependence with withdrawal; F17.200 Nicotine dependence, unspecified, uncomplicated; Z91.030 Bee allergy status; Z88.5 Allergy status to narcotic agent; Z88.6 Allergy status to analgesic agent; Z79.51 Long term (current) use of inhaled steroids; Z20.822 Contact with and (suspected) exposure to COVID-19
CPT/HCPCS: 99291; 99292; 96365; 96375 ×2; 96361; 96374; 96372; 51798; 36415; 94640; 94644; 94645; 93005; 84439; 80053; 84443; 82140; 82550; 82553; 82803; 83605; 83690; 83735; 84100; 84132; 84484; 85025; 85610; 85730; 81003; 80306; 80143; 87635; 80179; 71045; 72125; 70486; 70450; G0480; J2930; J0696; J0610; 80320